=== PATIENT | female | born 1975 | race Caucasian/White ===

== ENCOUNTER 2016-10-10 00:12 | Emergency (ER) | payer OTHER ==
[2016-10-10 01:41] LABS: ABSOLUTE NEUTROPHIL COUNT 13.5 K/mm3 (1.8-7.7); BASO # 0.1 K/mm3 (0.0-0.2); BASO % 0.4 % (0.2-1.0); EOS # 0.2 (0.0-0.5); EOS % 1.2 % (0.9-2.9); HEMATOCRIT 40.2 % (37.0-47.0); HEMOGLOBIN 12.7 gm/l (12.0-16.0); IMM NEUT # 0.1 K/mm3 (0-0.2); IMM NEUT% 0.4 % (0-1); LYMPH # 3.2 (1.0-4.8); LYMPH % 17.4 % (15-45); MEAN CELL VOLUME 69.1 fl (81.0-99.0); MEAN CORPUSCULAR HEMOGLOBIN 21.8 pg (27.0-31.0); MEAN CORPUSCULAR HGB CONC 31.6 g/dl (33.0-37.0); MEAN PLATELET VOLUME 10.9 fl (7.4-10.4); MONO # 1.2 (0.0-0.8); MONO % 6.5 % (4-12); NEUT % 74.1 % (43-75); PLATELET COUNT 330 K/mm3 (130-400)
[2016-10-10] MEDS ORDERED: CEPHALEXIN 500 MG CAPSULE ONE (01:54)
[2016-10-10 01:59] LABS: PLATELET ESTIMATE NORMAL (NORMAL)
== END 2016-10-10 02:08 | disposition home or self-care (01) ==
LOC: ED 00:12
DX: L02.512 Cutaneous abscess of left hand (principal); F17.210 Nicotine dependence, cigarettes, uncomplicated